=== PATIENT | male | born 1960 | race American Indian/Alaskan Native ===

== ENCOUNTER 2020-03-25 13:45 | Inpatient (IN) | payer BC ==
[2020-03-25] MEDS ORDERED: ASPIRIN 325 MG TAB PO ONE ×2 (13:54→15:02)
[2020-03-25] MEDS ORDERED: SODIUM CHLORIDE IRRI 500 ML 0 ML IR ONE (14:27)
[2020-03-25 14:34] LABS: Basophils % (Auto) 0.3 % (0.0-1.8); Eosinophils # (Auto) 0.1 K/mm3 (0.0-0.4); Eosinophils % (Auto) 1.3 % (0.0-4.3); Hematocrit 45.8 % (35.5-45.6); Lymphocytes # (Auto) 0.7 K/mm3 (1.2-5.4); Lymphocytes % (Auto) 7.9 % (13.4-35.0); Mean Corpuscular HGB Conc 35 % (32-34); Mean Corpuscular Volume 81 fl (84-94); Monocytes # (Auto) 0.5 K/mm3 (0.0-0.8); Monocytes % (Auto) 5.8 % (0.0-7.3); Platelet Count 660 K/mm3 (140-440); Red Blood Count 5.63 M/mm3 (3.65-5.03); Red Cell Distribution Width 14.3 % (13.2-15.2)
[2020-03-25 14:47] LABS: Calcium 9.7 mg/dL (8.4-10.2)
[2020-03-25] MEDS ORDERED: SODIUM CHLORIDE 0.9% 1000 ML 1,000 ML IV ONE (15:02)
[2020-03-25] MEDS ORDERED: METOPROLOL TARTRATE 5 MG/5 ML INJ IV ONE (15:08)
[2020-03-25 15:12] LABS: Chol/HDL Ratio 6.34 %
--- NOTE | 2020-03-25 15:14 | Emergency Department Report ---
ED Chest Pain HPI - General Chief Complaint: Chest Pain Stated Complaint: DIFFICULTY BREATHING Time Seen by Provider: 03/25/20 14:59 Source: patient Mode of arrival: Ambulatory Limitations: No Limitations - History of Present Illness Initial Comments: Patient is a 59-year-old hypertensive male who presents emergency department for evaluation of 1-1/2 weeks of intermittent dyspnea associated with chest tightness which at times is exertional but not pleuritic. Patient denies history of cardiac disease, denies cough or fever. Patient was scheduled to be seen by cardiology today, who sent patient to the emergency department without evaluation after hearing symptoms. - Related Data Allergies Allergy/AdvReac Type Severity Reaction Status Date / Time No Known Allergies Allergy Unverified 07/11/15 08:41 Heart Score - HEART Score History: Highly suspicious EKG: Non-specific Age: 45-65 Risk factors: 1-2 risk factors Troponin: > 3x normal limit HEART Score: 7 - Critical Actions Critical Actions: >7 pts:50-65% risk of adverse cardiac event. Early invasive measures ED Review of Systems ROS: Stated complaint: DIFFICULTY BREATHING Other details as noted in HPI Comment: All other systems reviewed and negative ED Past Medical Hx - Past Medical History Previous Medical History?: Yes Hx Hypertension: Yes Hx Renal Disease: Yes (no dialysis) - Surgical History Past Surgical History?: No - Social History Smoking Status: Never Smoker Substance Use Type: None ED Physical Exam - General Limitations: No Limitations General appearance: alert, in distress - Head Head exam: Present: atraumatic, normocephalic - Eye Eye exam: Present: normal appearance - ENT ENT exam: Present: mucous membranes moist - Neck Neck exam: Present: normal inspection - Respiratory Respiratory exam: Present: normal lung sounds bilaterally. Absent: respiratory distress - Cardiovascular Cardiovascular Exam: Present: regular rate, normal rhythm. Absent: systolic murmur, diastolic murmur, rubs, gallop - GI/Abdominal GI/Abdominal exam: Present: soft, normal bowel sounds - Rectal Rectal exam: Present: deferred - Extremities Exam Extremities exam: Present: normal inspection - Back Exam Back exam: Present: normal inspection - Neurological Exam Neurological exam: Present: alert, oriented X3 - Psychiatric Psychiatric exam: Present: normal affect, normal mood - Skin Skin exam: Present: warm, dry, intact, normal color. Absent: rash ED Course Vital Signs 03/25/20 03/25/20 03/25/20 13:52 15:05 15:12 Temperature 97.6 F Pulse Rate 99 H 100 H Respiratory 24 28 H 18 Rate Blood Pressure 186/127 O2 Sat by Pulse 99 99 100 Oximetry 03/25/20 03/25/20 15:15 15:25 Temperature Pulse Rate 100 H 89 Respiratory 36 H Rate Blood Pressure 172/110 O2 Sat by Pulse 100 Oximetry - Reevaluation(s) Reevaluation #1: 03/25/20 15:13 Patient initially treated with aspirin p.o., SL nitro, heparin bolus and drip, and Lopressor IV. Krysta, midlevel for cardiology on-call Dr. Roman, contacted, case discussed, defers to [place] [facility] given absence of STEMI. 03/25/20 15:25 Reevaluation #2: 03/25/20 15:38 Patient completely asymptomatic following 1 dose of sublingual nitroglycerin Reevaluation #3: 03/25/20 15:45 Iraida Carter contacted, case discussed, will call back after consultation with MD Reevaluation #4: 03/25/20 15:50 Iraida Carter again contacted, states discussed with Dr. Ramsey Ross, recommends nitro paste and admit to hospitalist for cardiology evaluation. HARI score - Hari Score Age > 65: (0) No Aspirin use within the Past 7 Days: (0) No 3 or more CAD Risk Factors: (0) No 2 or more Angina events in past 24 hrs: (1) Yes Known CAD with more than 50% Stenosis: (0) No Elevated Cardiac Markers: (1) Yes ST Deviation Greater than 0.5mm: (0) No HARI Score: 2 ED Medical Decision Making - Lab Data Result diagrams: 03/25/20 14:06 03/25/20 14:06 Lab Results 03/25/20 03/25/20 Range/Units 14:06 14:06 WBC 8.4 (4.5-11.0) K/mm3 RBC 5.63 H (3.65-5.03) M/mm3 Hgb 16.0 H (11.8-15.2) gm/dl Hct 45.8 H (35.5-45.6) % MCV 81 L (84-94) fl MCH 29 (28-32) pg MCHC 35 H (32-34) % RDW 14.3 (13.2-15.2) % Plt Count 660 H (140-440) K/mm3 Lymph % (Auto) 7.9 L (13.4-35.0) % Martin % (Auto) 5.8 (0.0-7.3) % Eos % (Auto) 1.3 (0.0-4.3) % Baso % (Auto) 0.3 (0.0-1.8) % Lymph # (Auto) 0.7 L (1.2-5.4) K/mm3 Martin # (Auto) 0.5 (0.0-0.8) K/mm3 Eos # (Auto) 0.1 (0.0-0.4) K/mm3 Baso # (Auto) 0.0 (0.0-0.1) K/mm3 Seg Neutrophils % 84.7 H (40.0-70.0) % Seg Neutrophils # 7.1 (1.8-7.7) K/mm3 Sodium 136 L (137-145) mmol/L Potassium 4.1 (3.6-5.0) mmol/L Chloride 102.8 (98-107) mmol/L Carbon Dioxide 25 (22-30) mmol/L Anion Gap 12 mmol/L BUN 46 H (9-20) mg/dL Creatinine 4.7 H (0.8-1.3) mg/dL Estimated GFR 16 ml/min BUN/Creatinine Ratio 10 % Glucose 92 (75-100) mg/dL Calcium 9.7 (8.4-10.2) mg/dL Troponin T 0.410 H* (0.00-0.029) ng/mL Triglycerides 107 (2-149) mg/dL Cholesterol 241 H (50-199) mg/dL LDL Cholesterol Direct 206 H (50-130) mg/dL HDL Cholesterol 38 L (40-59) mg/dL Cholesterol/HDL Ratio 6.34 % Vital Signs 03/25/20 03/25/20 03/25/20 13:52 15:05 15:12 Temperature 97.6 F Pulse Rate 99 H 100 H Respiratory 24 28 H 18 Rate Blood Pressure 186/127 O2 Sat by Pulse 99 99 100 Oximetry 03/25/20 03/25/20 15:15 15:25 Temperature Pulse Rate 100 H 89 Respiratory 36 H Rate Blood Pressure 172/110 O2 Sat by Pulse 100 Oximetry - EKG Data -: EKG Interpreted by Me (Sinus rhythm at 90, nonspecific ST-T changes, normal QRS) Critical care attestation.: If time is entered above; I have spent that time in minutes in the direct care of this critically ill patient, excluding procedure time. ED Disposition Clinical Impression: NSTEMI (non-ST elevated myocardial infarction) Disposition: OP ADMIT IP TO THIS HOSP Is pt being admited?: Yes Condition: Stable
--- NOTE | 2020-03-25 15:15 | XRay Report ---
CHEST 1 VIEW 2:33 PM INDICATION / CLINICAL INFORMATION: Chest pain/tightness. COMPARISON: None available. FINDINGS: SUPPORT DEVICES: None. HEART / MEDIASTINUM: The heart size and pulmonary vasculature are normal. The aorta is normal in is[place] daniel. LUNGS / PLEURA: No significant pulmonary or pleural abnormality. No pneumothorax. ADDITIONAL FINDINGS: No significant additional findings. IMPRESSION: No acute findings. Signer Name: Bob Sheriff MD Signed: 03/25/2020 3:10 PM Workstation Name: [id number]
[2020-03-25] MEDS ORDERED: NITROGLYCERIN 0.4 MG TAB SUBL SL ONE (15:16)
[2020-03-25] MEDS ORDERED: HEPARIN 10,000 UNITS/10 ML VIAL IV ONE (15:22)
--- NOTE | 2020-03-25 15:48 | History and Physical Report ---
History of Present Illness Chief complaint: Im having chest pain History of present illness: 59 YO Male with HTN, CKD presents to ED for evaluation. Pt states that he has experienced chest pain over the past 10 days with worsening symptoms over the past 1 day. Patient states that his pain is 5/10, intermittent, worsened with exertion, relieved with rest, substernal, crushing in nature, nonradiating. Patient knowledges decreased exercise tolerance, dyspnea on exertion, dyspnea at rest. Pt notified his medical scheduler team who instructed the patient to seek further care at [facility]. Pt transported to [facility] via private vehicle for further care and evaluation of the aformentioned symptoms. Pt seen and evaluated in ED and found to have accelerated hypertension, angina as well as STEMI. Cardiology team consulted in ED. patient admitted to telemetry and initiated on therapeutic anticoagulation due to increased risk for cardiac decompensation. Pt denies fever, chills, palpitations, NVD, Traum, productive cough, skin rash, recent ill contacts, unilateral leg swelling, calf pain, prolonged travel/immobility, individual/family history of DVT/PE/bleeding/blood clotting disorders, or known exposure to COVID-19. No prior admission for review. No medication listed at time of admission for reconciliation. Past History Past Medical History: hypertension, renal failure Past Surgical History: No surgical history, Other (Reviewed) Social history: single. denies: smoking, alcohol abuse, prescription drug abuse Family history: hypertension Medications and Allergies Allergies Allergy/AdvReac Type Severity Reaction Status Date / Time No Known Allergies Allergy Unverified 07/11/15 08:41 Active Meds: Active Medications Sodium Chloride (Nacl 0.9% 1000 Ml) 1,000 mls @ 42 mls/hr IV ONCE ONE Stop: 03/26/20 14:50 Last Admin: 03/25/20 15:25 Dose: 42 mls/hr Documented by: Review of Systems Constitutional: no weight loss, no weight gain, no fever, no chills Ears, nose, mouth and throat: no ear pain, no tinnitis, no nasal congestion Cardiovascular: chest pain, shortness of breath, dyspnea on exertion, decreased exercise tolerance, no palpitations Respiratory: no cough, no cough with sputum, no excessive sputum Gastrointestinal: no abdominal pain, no nausea, no vomiting, no diarrhea, no constipation Genitourinary Male: no hematuria, no flank pain, no discharge, no nocturia, no erectile dysfunction Rectal: no pain, no incontinence, no bleeding Musculoskeletal: no neck stiffness, no shooting leg pain Integumentary: no rash, no wounds, no boils Neurological: no head injury, no weakness, no tingling, no seizures Psychiatric: no anxiety, no memory loss, no change in sleep habits, no insomnia Endocrine: no heat intolerance, no polyphagia, no polyuria, no excessive sweating Hematologic/Lymphatic: no easy bruising, no easy bleeding Allergic/Immunologic: no urticaria, no allergic rhinitis Exam - Constitutional Vitals: Temp Pulse Resp BP Pulse Ox 97.6 F 89 36 H 172/110 100 03/25/20 13:52 03/25/20 15:25 03/25/20 15:15 03/25/20 15:25 03/25/20 15:15 General appearance: Present: mild distress - EENT Eyes: Present: PERRL ENT: hearing intact, clear oral mucosa - Neck Neck: Present: supple, normal ROM - Respiratory Respiratory effort: normal Respiratory: bilateral: CTA - Cardiovascular Heart Sounds: Present: S1 & S2. Absent: rub, click - Extremities Extremities: pulses symmetrical, No edema Peripheral Pulses: within normal limits - Abdominal General gastrointestinal: Present: soft, non-tender, non-distended, normal bowel sounds Male genitourinary: Present: normal - Integumentary Integumentary: Present: clear, warm, dry - Musculoskeletal Musculoskeletal: gait normal, strength equal bilaterally - Psychiatric Psychiatric: appropriate mood/affect, intact judgment & insight - Neurologic Neurologic: CNII-XII intact, moves all extremities HEART Score - HEART Score EKG: Non-specific Age: 45-65 Risk factors: 1-2 risk factors Troponin: Troponin T 0.410 ng/mL (0.00-0.029) H* 03/25/20 14:06 Troponin: > 3x normal limit - Critical Actions Critical Actions: >7 pts:50-65% risk of adverse cardiac event. Early invasive measures Results - Labs CBC & Chem 7: 03/25/20 14:06 03/25/20 14:06 Labs: Abnormal lab results 03/25/20 03/25/20 Range/Units 14:06 14:06 RBC 5.63 H (3.65-5.03) M/mm3 Hgb 16.0 H (11.8-15.2) gm/dl Hct 45.8 H (35.5-45.6) % MCV 81 L (84-94) fl MCHC 35 H (32-34) % Plt Count 660 H (140-440) K/mm3 Lymph % (Auto) 7.9 L (13.4-35.0) % Lymph # (Auto) 0.7 L (1.2-5.4) K/mm3 Seg Neutrophils % 84.7 H (40.0-70.0) % Sodium 136 L (137-145) mmol/L BUN 46 H (9-20) mg/dL Creatinine 4.7 H (0.8-1.3) mg/dL Troponin T 0.410 H* (0.00-0.029) ng/mL Cholesterol 241 H (50-199) mg/dL LDL Cholesterol Direct 206 H (50-130) mg/dL HDL Cholesterol 38 L (40-59) mg/dL Assessment and Plan - Patient Problems (1) NSTEMI (non-ST elevated myocardial infarction) Current Visit: Yes Status: Acute Plan to address problem: Admit to telemetry, serial cardiac enzymes, EKG, therapeutic anticoagulation, cardiology team consulted in ED, further intervention and treatment as per cardiology team. (2) Diastolic CHF Current Visit: Yes Status: Acute Qualifiers: Heart failure chronicity: acute Qualified Code(s): I50.31 - Acute diastolic (congestive) heart failure Plan to address problem: Strict I/O, monitor urine output every shift, daily weight, afterload reduction, blood pressure control, echocardiogram ordered and is pending at time of ad mission (3) Accelerated hypertension Current Visit: Yes Status: Acute Plan to address problem: Monitor blood pressure every shift, continue medical management. (4) Acute kidney injury (NICHELLE) with acute tubular necrosis (ATN) Current Visit: Yes Status: Acute Plan to address problem: BMP, strict I's/O, monitor urine output every shift, avoid nephrotoxic agents, nephrology team consulted in ED. (5) DVT prophylaxis Current Visit: Yes Status: Acute Plan to address problem: SCD to bilateral lower extremities while in bed, continue therapeutic anticoagulation.
[2020-03-25] MEDS ORDERED: NITROGLYCERIN 0.4 MG PATCH 24HR TD ONE (16:00)
[2020-03-25 16:45] LABS: Creatine Kinase MB 7.4 ng/mL (0.0-4.0)
[2020-03-25 17:12] LABS: INR 1.09 (0.87-1.13)
[2020-03-25 17:13] LABS: Partial Thromboplastin Time 31.4 Sec. (24.2-36.6)
[2020-03-25] MEDS ORDERED: NITROGLYCERIN 2% OINT 1 GM TP ONE (17:32)
[2020-03-25] MEDS ORDERED: HEPARIN 10,000 UNITS/10 ML VIAL ONE (17:32)
[2020-03-25] MEDS ORDERED: ACETAMINOPHEN 325 MG TAB PO PRN (17:44)
[2020-03-25] MEDS ORDERED: ONDANSETRON 4 MG/2 ML INJ IV PRN (17:44)
[2020-03-25] MEDS: HEPARIN/ 0.45% NACL DRIP 25,000 UNIT/500 ML BAG IV SCH (21:29)
[2020-03-25] MEDS: METOPROLOL TARTRATE 25 MG TAB PO SCH (22:03)
[2020-03-26] MEDS ORDERED: ACETAMINOPHEN 325 MG TAB PO PRN (00:32)
[2020-03-26] MEDS ORDERED: NITROGLYCERIN 0.4 MG TAB SUBL SL PRN (00:32)
[2020-03-26] MEDS: ACETAMINOPHEN 325 MG TAB PO PRN ×3 (06:33→21:19)
[2020-03-26 06:34] LABS: Basophils % (Auto) 0.5 % (0.0-1.8); Eosinophils # (Auto) 0.1 K/mm3 (0.0-0.4); Eosinophils % (Auto) 1.7 % (0.0-4.3); Hematocrit 40.7 % (35.5-45.6); Hemoglobin 14.2 gm/dl (11.8-15.2); Lymphocytes % (Auto) 11.9 % (13.4-35.0); Mean Corpuscular HGB Conc 35 % (32-34); Mean Corpuscular Volume 81 fl (84-94); Monocytes # (Auto) 0.8 K/mm3 (0.0-0.8); Monocytes % (Auto) 9.4 % (0.0-7.3); Platelet Count 665 K/mm3 (140-440); Red Blood Count 5.05 M/mm3 (3.65-5.03); Red Cell Distribution Width 14.3 % (13.2-15.2)
[2020-03-26] MEDS ORDERED: hydrALAZINE 20 MG/1 ML INJ IV ONE (06:45)
[2020-03-26 06:49] LABS: Calcium 9.1 mg/dL (8.4-10.2)
--- NOTE | 2020-03-26 08:15 | Consultation ---
History of Present Illness - Reason for Consult Consult date: 03/26/20 chronic renal failure - History of Present Illness 59 year old man with known CKD, HTN, HLD who presents with shortness of breath and chest tightness. Patient is known to myself from CKD clinic, last seen 03/07/2020. Denies any concerning symptoms today, including appetite changes, nausea, vomiting, abnormal urination, dyspnea, metallic tasting food. Creatinine has been relatively stable between 4.1-4.5 for most part. Has noted interest in PD in past but has not decided. Also referred for [place] transplant evaluation but not done. Notes that he is feeling better today as noted above. Good urination per larissa ent. Past History Past Medical History: hypertension, renal failure Past Surgical History: No surgical history, Other (Reviewed) Social history: single. denies: smoking, alcohol abuse, prescription drug abuse Family history: hypertension Medications and Allergies Allergies Allergy/AdvReac Type Severity Reaction Status Date / Time No Known Allergies Allergy Unverified 07/11/15 08:41 Home Medications Medication Instructions Recorded Confirmed Last Taken Type Methyldopa 500 mg PO ONCE 03/25/20 03/26/20 03/25/20 History Rosuvastatin Calcium 40 mg PO ONCE 03/25/20 03/26/20 Unknown History Triamcinolone 0.1% [Kenalog 0.1% 1 applic TP TID 03/25/20 03/26/20 03/26/20 10:36 History OINT] carvediloL [Coreg] 25 mg PO BID 03/25/20 03/26/20 03/26/20 10:37 History lisinopriL [Zestril TAB] 40 mg PO QDAY 03/25/20 03/26/20 03/26/20 10:36 History Active Meds: Active Medications Acetaminophen (Acetaminophen 325 Mg Tab) 650 mg PO Q6H PRN PRN Reason: Pain MILD(1-3)/Fever >100.5/NEGRO Last Admin: 03/26/20 06:33 Dose: 650 mg Documented by: Atorvastatin Calcium (Atorvastatin 40 Mg Tab) 40 mg PO QHS DERIK Last Admin: 03/26/20 00:53 Dose: 40 mg Documented by: Sodium Chloride (Nacl 0.9% 1000 Ml) 1,000 mls @ 42 mls/hr IV ONCE ONE Stop: 03/26/20 14:50 Last Admin: 03/25/20 15:25 Dose: 42 mls/hr Documented by: Heparin Sodium/Sodium Chloride (Heparin/ 0.45% Nacl-25,000 Unit/500 Ml) 25,000 unit in 500 mls @ 29 mls/hr IV TITR [facility]; Protocol Last Titration: 03/26/20 07:02 Dose: 0 units/hr, 0 mls/hr Documented by: Metoprolol Tartrate (Metoprolol Tartrate 25 Mg Tab) 12.5 mg PO BID [facility] Last Admin: 03/25/20 22:03 Dose: 12.5 mg Documented by: Nitroglycerin (Nitroglycerin 0.4 Mg Tab Subl) 0.4 mg SL Q5M PRN PRN Reason: Chest Pain Ondansetron HCl (Ondansetron 4 Mg/2 Ml Inj) 4 mg IV Q8H PRN PRN Reason: Nausea And Vomiting Sodium Chloride (Sodium Chloride 0.9% 10 Ml Flush Syringe) 10 ml IV BID [facility] Last Admin: 03/25/20 22:03 Dose: 10 ml Documented by: Sodium Chloride (Sodium Chloride 0.9% 10 Ml Flush Syringe) 10 ml IV PRN PRN PRN Reason: LINE FLUSH Sodium Chloride (Sodium Chloride 0.9% 10 Ml Flush Syringe) 10 ml IV PRN PRN PRN Reason: LINE FLUSH Review of Systems All systems: negative (as per HPI) Exam - Vital Signs Vital signs: Vital Signs Temp Pulse Resp BP Pulse Ox 97.6 F 99 H 24 186/127 99 03/25/20 13:52 03/25/20 13:52 03/25/20 13:52 03/25/20 13:52 03/25/20 13:52 - Physical Exam Narrative exam: Constitutional: no acute distress Head: NC/AT Neck: supple Lungs: clear to auscultation CV: RRR, no M/R/G Abdomen: soft, non-tender, bowel sounds present Back: nontender Extremities: no edema, pulses WNL Skin: intact Neuro: no focal deficits, alert and oriented x4 Results - Lab Results 03/26/20 06:07 03/26/20 06:07 Most recent lab results Calcium 9.1 mg/dL (8.4-10.2) 03/26/20 06:07 Assessment and Plan # CKD stage 4: creatinine is fairly stable at this time. Did review his outpatient notes and discussed his CKD prognosis and risk of NICHELLE with him today. Patient has been working hard to manage his lifestyle to maintain off dialysis, but certainly high risk to progress to ESRD at this time. - appreciate cardiology input, defer management for ACS to them. If contrast is needed for angiography, ok from renal perspective if benefits >risks. Would advise pre and post hydration (1L as tolerated) to mitigate nephrotoxic risk. Did discuss with patient that contrast is a known nephrotoxin and may worsen his renal function - Is/Os, please ensure proper urine output noted - renally dose meds - save arm precautions - no immediate indication for HD, will follow with course. Electrolytes WNL # NSTEMI, Tropinemia: appreciate cardiology input # HTN: BP outpatient had been controlled, but now high. Would increase metoprolol as able (or consider carvedilol for greater BP effect) # Secondary Hyperparathyroidism: last PTH ~100
--- NOTE | 2020-03-26 08:22 | Progress Note ---
Assessment and Plan Assessment and plan: (1) NSTEMI (non-ST elevated myocardial infarction) Current Visit: Yes Status: Acute Plan to address problem: Admit to telemetry, serial cardiac enzymes, EKG, therapeutic anticoagulation, cardiology team consulted in ED, further intervention and treatment as per cardiology team. (2) Diastolic CHF Current Visit: Yes Status: Acute Qualifiers: Heart failure chronicity: acute Qualified Code(s): I50.31 - Acute diastolic (congestive) heart failure Plan to address problem: Strict I/O, monitor urine output every shift, daily weight, afterload reduction, blood pressure control, echocardiogram ordered and is pending at time of admission (3) Accelerated hypertension Current Visit: Yes Status: Acute Plan to address problem: Monitor blood pressure every shift, continue medical management. (4) Acute kidney injury (NICHELLE) with acute tubular necrosis (ATN) Current Visit: Yes Status: Acute Plan to address problem: BMP, strict I's/O, monitor urine output every shift, avoid nephrotoxic agents, nephrology team consulted in ED. (5) DVT prophylaxis Current Visit: Yes Status: Acute Plan to address problem: SCD to bilateral lower extremities while in bed, continue therapeutic anticoagulation. 03/26/2020; patient has non-STEMI and currently on heparin drip, cardiology cons ulted and will follow the recommendations. Hypertensive emergency start the patient on Procardia and ARN hydralazine, will monitor and adjust medication as needed. NICHELLE; nephrology consulted and will follow the recommendations. History Interval history: Patient was seen and evaluated this morning Patient said chest pain resolved No shortness of breath Hospitalist Physical - Physical exam Narrative exam: Not in cardiopulmonary distress. The patient appeared well nourished and normally developed. Vital signs as documented. Head exam is unremarkable. No scleral icterus . Neck is without jugular venous distension, thyromegaly, or carotid bruits. Lungs are clear to auscultation. Cardiac exam reveals regular rate and Rhythm. Abdominal exam reveals normal bowel sounds, nontender, no organomegaly. Extremities are nonedematous and both femoral and pedal pulses are normal. [employer] REPRESENTATIVE: Alert and oriented 3. No focal weakness. - Constitutional Vitals: Temp Pulse Resp BP Pulse Ox 97.6 F 82 17 176/123 98 03/25/20 13:52 03/26/20 07:00 03/25/20 20:30 03/26/20 06:33 03/26/20 02:54 General appearance: Present: mild distress HEART Score - HEART Score EKG: Non-specific Age: 45-65 Risk factors: 1-2 risk factors Troponin: Troponin T 0.752 ng/mL (0.00-0.029) H* D 03/26/20 01:39 Troponin: > 3x normal limit - Critical Actions Critical Actions: >7 pts:50-65% risk of adverse cardiac event. Early invasive measures Results - Labs CBC & Chem 7: 03/26/20 06:07 03/26/20 06:07 Labs: Laboratory Last Values WBC 8.6 K/mm3 (4.5-11.0) 03/26/20 06:07 RBC 5.05 M/mm3 (3.65-5.03) H 03/26/20 06:07 Hgb 14.2 gm/dl (11.8-15.2) 03/26/20 06:07 Hct 40.7 % (35.5-45.6) 03/26/20 06:07 MCV 81 fl (84-94) L 03/26/20 06:07 MCH 28 pg (28-32) 03/26/20 06:07 MCHC 35 % (32-34) H 03/26/20 06:07 RDW 14.3 % (13.2-15.2) 03/26/20 06:07 Plt Count 665 K/mm3 (140-440) H 03/26/20 06:07 Lymph % (Auto) 11.9 % (13.4-35.0) L 03/26/20 06:07 [place] % (Auto) 9.4 % (0.0-7.3) H 03/26/20 06:07 Eos % (Auto) 1.7 % (0.0-4.3) 03/26/20 06:07 Baso % (Auto) 0.5 % (0.0-1.8) 03/26/20 06:07 Lymph # (Auto) 1.0 K/mm3 (1.2-5.4) L 03/26/20 06:07 [place] # (Auto) 0.8 K/mm3 (0.0-0.8) 03/26/20 06:07 Eos # (Auto) 0.1 K/mm3 (0.0-0.4) 03/26/20 06:07 Baso # (Auto) 0.0 K/mm3 (0.0-0.1) 03/26/20 06:07 Seg Neutrophils % 76.5 % (40.0-70.0) H 03/26/20 06:07 Seg Neutrophils # 6.6 K/mm3 (1.8-7.7) 03/26/20 06:07 PT 13.9 Sec. (12.2-14.9) 03/25/20 15:24 INR 1.09 (0.87-1.13) 03/25/20 15:24 APTT 31.4 Sec. (24.2-36.6) 03/25/20 15:24 Heparin Anti-Xa Level 0.91 U.I./ml (0.3-0.7) H 03/26/20 06:07 Sodium 139 mmol/L (137-145) 03/26/20 06:07 Potassium 4.2 mmol/L (3.6-5.0) 03/26/20 06:07 Chloride 105.0 mmol/L (98-107) 03/26/20 06:07 Carbon Dioxide 24 mmol/L (22-30) 03/26/20 06:07 Anion Gap 14 mmol/L 03/26/20 06:07 BUN 48 mg/dL (9-20) H 03/26/20 06:07 Creatinine 4.8 mg/dL (0.8-1.3) H 03/26/20 06:07 Estimated GFR 15 ml/min 03/26/20 06:07 BUN/Creatinine Ratio 10 % 03/26/20 06:07 Glucose 85 mg/dL (75-100) 03/26/20 06:07 Calcium 9.1 mg/dL (8.4-10.2) 03/26/20 06:07 Total Creatine Kinase 267 units/L (55-170) H 03/25/20 15:24 CK-MB (CK-2) 7.4 ng/mL (0.0-4.0) H 03/25/20 15:24 CK-MB (CK-2) Rel Index 2.7 (0-4) 03/25/20 15:24 Troponin T 0.752 ng/mL (0.00-0.029) H* D 03/26/20 01:39 NT-Pro-B Natriuret Pep 1711 pg/mL (0-900) H 03/25/20 15:24 Triglycerides 107 mg/dL (2-149) 03/25/20 14:06 Cholesterol 241 mg/dL (50-199) H 03/25/20 14:06 LDL Cholesterol Direct 206 mg/dL (50-130) H 03/25/20 14:06 HDL Cholesterol 38 mg/dL (40-59) L 03/25/20 14:06 Cholesterol/HDL Ratio 6.34 % 03/25/20 14:06 Blood Type B POSITIVE 03/25/20 15:24 Antibody Screen Negative 03/25/20 15:24 Melendez/IV: Voiding Method Toilet IV Catheter Type [Right INT / Saline Lock Antecubital] Active Medications - Current Medications Current Medications: Generic Name Dose Route Start Last Admin Trade Name Freq PRN Reason Stop Dose Admin Acetaminophen 650 mg 03/26/20 01:00 03/26/20 06:33 Acetaminophen 325 Mg Tab PO 650 mg Q6H PRN Administration Pain MILD(1-3)/Fever >100.5/NEGRO Atorvastatin Calcium 40 mg 03/26/20 00:32 03/26/20 00:53 Atorvastatin 40 Mg Tab PO 40 mg QHS DERIK Administration Hydralazine HCl 10 mg 03/26/20 10:00 Hydralazine 20 Mg/1 Ml Inj IV Q4HR DERIK Sodium Chloride 1,000 mls @ 42 mls/hr 03/25/20 15:02 03/25/20 15:25 Nacl 0.9% 1000 Ml IV 03/26/20 14:50 42 mls/hr ONCE ONE Administration Heparin Sodium/Sodium Chloride 25,000 unit in 500 mls @ 29 mls/hr 03/25/20 19:00 03/26/20 07:02 Heparin/ 0.45% Nacl-25,000 Unit/500 Ml IV 0 units/hr TITR DERIK 0 mls/hr Titration Protocol 1,450 UNITS/HR Metoprolol Tartrate 12.5 mg 03/25/20 22:00 03/25/20 22:03 Metoprolol Tartrate 25 Mg Tab PO 12.5 mg BID DERIK Administration Nifedipine 90 mg 03/26/20 08:19 Nifedipine Xl 90 Mg Tab PO Q12HR DERIK Nitroglycerin 0.4 mg 12/12/20 00:32 Nitroglycerin 0.4 Mg Tab Subl SL Q5M PRN Chest Pain Ondansetron HCl 4 mg 03/25/20 17:44 Ondansetron 4 Mg/2 Ml Inj IV Q8H PRN Nausea And Vomiting Sodium Chloride 10 ml 03/25/20 22:00 03/25/20 22:03 Sodium Chloride 0.9% 10 Ml Flush Syringe IV 10 ml BID DERIK Administration Sodium Chloride 10 ml 03/25/20 17:44 Sodium Chloride 0.9% 10 Ml Flush Syringe IV PRN PRN LINE FLUSH Sodium Chloride 10 ml 03/26/20 00:32 Sodium Chloride 0.9% 10 Ml Flush Syringe IV PRN PRN LINE FLUSH
--- NOTE | 2020-03-26 09:02 | Consultation ---
History of Present Illness Consult date: 03/26/20 Consult reason: chest pain History of present illness: 59 year old male presenting with shortness of breath and chest tightness. Patient denies prior history of heart disease but surely has several uncontrolled risk factors including uncontrolled hypertension, hyperlipidemia for which he was not taking his statin therapy and renal failuire. He denies prior history of type II DM. There is a strong family history of heart disease. Troponin trend is consistent with ACS. Past History Past Medical History: hypertension, renal failure Past Surgical History: No surgical history, Other (Reviewed) Social history: single. denies: smoking, alcohol abuse, prescription drug abuse Family history: hypertension Medications and Allergies Allergies Allergy/AdvReac Type Severity Reaction Status Date / Time No Known Allergies Allergy Unverified 07/11/15 08:41 Home Medications Medication Instructions Recorded Confirmed Last Taken Type Methyldopa 03/25/20 Unknown History Rosuvastatin Calcium 40 mg PO 03/25/20 Unknown History Tamsulosin 03/25/20 Unknown History Triamcinolone 0.1% [Kenalog 0.1% 1 applic TP TID 03/25/20 03/25/20 Unknown History OINT] carvediloL [Coreg] 03/25/20 Unknown History lisinopriL [Zestril TAB] 40 mg PO QDAY 03/25/20 03/25/20 Unknown History Active Meds: Active Medications Acetaminophen (Acetaminophen 325 Mg Tab) 650 mg PO Q6H PRN PRN Reason: Pain MILD(1-3)/Fever >100.5/NEGRO Last Admin: 03/26/20 06:33 Dose: 650 mg Documented by: Atorvastatin Calcium (Atorvastatin 40 Mg Tab) 40 mg PO QHS DERIK Last Admin: 03/26/20 00:53 Dose: 40 mg Documented by: Hydralazine HCl (Hydralazine 20 Mg/1 Ml Inj) 10 mg IV Q4HR DERIK Sodium Chloride (Nacl 0.9% 1000 Ml) 1,000 mls @ 42 mls/hr IV ONCE ONE Stop: 03/26/20 14:50 Last Admin: 03/25/20 15:25 Dose: 42 mls/hr Documented by: Heparin Sodium/Sodium Chloride (Heparin/ 0.45% Nacl-25,000 Unit/500 Ml) 25,000 unit in 500 mls @ 29 mls/hr IV TITR DERIK; Protocol Last Titration: 03/26/20 07:02 Dose: 0 units/hr, 0 mls/hr Documented by: Metoprolol Tartrate (Metoprolol Tartrate 25 Mg Tab) 12.5 mg PO BID [facility] Last Admin: 03/25/20 22:03 Dose: 12.5 mg Documented by: Nifedipine (Nifedipine Xl 90 Mg Tab) 90 mg PO Q12HR [facility] Nitroglycerin (Nitroglycerin 0.4 Mg Tab Subl) 0.4 mg SL Q5M PRN PRN Reason: Chest Pain Ondansetron HCl (Ondansetron 4 Mg/2 Ml Inj) 4 mg IV Q8H PRN PRN Reason: Nausea And Vomiting Sodium Chloride (Sodium Chloride 0.9% 10 Ml Flush Syringe) 10 ml IV BID [facility] Last Admin: 03/25/20 22:03 Dose: 10 ml Documented by: Sodium Chloride (Sodium Chloride 0.9% 10 Ml Flush Syringe) 10 ml IV PRN PRN PRN Reason: LINE FLUSH Review of Systems All systems: negative Physical Examination Vital Signs Temp Pulse Resp BP Pulse Ox 97.6 F 99 H 24 186/127 99 03/25/20 13:52 03/25/20 13:52 03/25/20 13:52 03/25/20 13:52 03/25/20 13:52 General appearance: no acute distress Neck: Positive: neck supple Cardiac: Positive: Reg Rate and Rhythm Lungs: Positive: Normal Exam Neuro: Positive: Grossly Intact Abdomen: Positive: Soft Extremities: Absent: edema Results 03/26/20 06:07 03/26/20 06:07 Cardiac Enzymes 03/25/20 Range/Units 15:24 CK-MB (CK-2) 7.4 H (0.0-4.0) ng/mL Coagulation 03/25/20 Range/Units 15:24 PT 13.9 (12.2-14.9) Sec. INR 1.09 (0.87-1.13) APTT 31.4 (24.2-36.6) Sec. Lipids 03/25/20 Range/Units 14:06 Triglycerides 107 (2-149) mg/dL Cholesterol 241 H (50-199) mg/dL HDL Cholesterol 38 L (40-59) mg/dL Cholesterol/HDL Ratio 6.34 % CBC 03/25/20 03/26/20 Range/Units 14:06 06:07 WBC 8.4 8.6 (4.5-11.0) K/mm3 RBC 5.63 H 5.05 H (3.65-5.03) M/mm3 Hgb 16.0 H 14.2 (11.8-15.2) gm/dl Hct 45.8 H 40.7 (35.5-45.6) % Plt Count 660 H 665 H (140-440) K/mm3 Lymph # (Auto) 0.7 L 1.0 L (1.2-5.4) K/mm3 [place] # (Auto) 0.5 0.8 (0.0-0.8) K/mm3 Eos # (Auto) 0.1 0.1 (0.0-0.4) K/mm3 Baso # (Auto) 0.0 0.0 (0.0-0.1) K/mm3 Comprehensive Metabolic Panel 03/25/20 03/26/20 Range/Units 14:06 06:07 Sodium 136 L 139 (137-145) mmol/L Potassium 4.1 4.2 (3.6-5.0) mmol/L Chloride 102.8 105.0 (98-107) mmol/L Carbon Dioxide 25 24 (22-30) mmol/L BUN 46 H 48 H (9-20) mg/dL Creatinine 4.7 H 4.8 H (0.8-1.3) mg/dL Glucose 92 85 (75-100) mg/dL Calcium 9.7 9.1 (8.4-10.2) mg/dL - EKG Interpretation EKG: sinus rhythm EKG interpretations - Telemetry EKG Rhythm: Sinus Rhythm Assessment and Plan NSTEMI Essential primary hypertension Labile blood pressure - uncontrolled Hyperlipidemia (LDL 206) Not taking statin as outpatient Chronic renal failure, stage IV Echocardiogram showing normal LVEF with mild LVH Recommendations: GDMT for NSTEMI including intravenous anticoagulation for 48 hours Ideally patient needs a coronary angiogram but would like renal input and guidance with respect to contrast nephrotoxicity
[2020-03-26] MEDS: ASPIRIN EC 81 MG TAB PO SCH (09:24)
[2020-03-26] MEDS: hydrALAZINE 20 MG/1 ML INJ IV SCH ×4 (09:25→21:09)
[2020-03-26] MEDS: METOPROLOL TARTRATE 25 MG TAB PO SCH ×2 (09:25→21:10)
[2020-03-26] MEDS: NIFEdipine XL 90 MG TAB PO SCH ×2 (09:25→21:10)
[2020-03-26] MEDS: HEPARIN/ 0.45% NACL DRIP 25,000 UNIT/500 ML BAG IV SCH ×2 (15:21→16:51)
[2020-03-27] MEDS: hydrALAZINE 20 MG/1 ML INJ IV SCH ×4 (02:19→14:28)
[2020-03-27] MEDS: ACETAMINOPHEN 325 MG TAB PO PRN (06:25)
[2020-03-27 07:02] LABS: Calcium 9.5 mg/dL (8.4-10.2)
[2020-03-27] MEDS: NIFEdipine XL 90 MG TAB PO SCH (09:10)
[2020-03-27] MEDS: METOPROLOL TARTRATE 25 MG TAB PO SCH (09:11)
[2020-03-27] MEDS: ASPIRIN EC 81 MG TAB PO SCH (09:11)
--- NOTE | 2020-03-27 09:56 | Progress Note ---
Assessment and Plan NSTEMI Extensive discussion with patient Patient decided to pursue conservative medical therapy due to underlying renal failure Essential primary hypertension Labile blood pressure - uncontrolled Hyperlipidemia (LDL 206) Not taking statin as outpatient Chronic renal failure, stage IV Echocardiogram showing normal LVEF with mild LVH Recommendations: Patient decided to pursue conservative medical therapy due to underlying renal failure Start plavix 75 mg po daily and increase metoprolol to 50 mg po bid Continue IV heparin until 7 pm today then discontinue Outpatient cardiac follow-up Subjective Date of service: 03/27/20 Principal diagnosis: NSTEMI Interval history: Patient denies chest pain or shortness of breath Objective Vital Signs Temp Pulse Pulse Pulse Resp BP Pulse Ox 03/27/20 09:11 92 H 172/119 03/27/20 08:40 98 03/27/20 08:36 98.1 F 106 H 18 171/106 98 03/27/20 03:11 99.6 F 97 H 16 178/119 94 03/26/20 22:54 98.4 F 99 H 16 153/108 97 03/26/20 21:10 101 H 158/109 03/26/20 19:28 99.8 F H 109 H 16 158/109 96 03/26/20 19:25 119 H 03/26/20 17:44 78 162/109 03/26/20 16:11 98.9 F 100 H 20 162/109 100 03/26/20 15:48 98 H 175/110 98 03/26/20 14:00 89 169/105 03/26/20 12:00 98 H 85 85 19 98 03/26/20 11:31 99.2 F 93 H 18 167/103 97 03/26/20 10:00 82 - Physical Examination General: Appears Well Neck: Positive: neck supple Cardiac: Positive: Reg Rate and Rhythm Lungs: Positive: Normal Exam Neuro: Positive: Grossly Intact Abdomen: Positive: Soft Extremities: Absent: edema - Labs and Meds Comprehensive Metabolic Panel 03/27/20 Range/Units 05:28 Sodium 139 (137-145) mmol/L Potassium 4.0 (3.6-5.0) mmol/L Chloride 105.3 (98-107) mmol/L Carbon Dioxide 19 L (22-30) mmol/L BUN 45 H (9-20) mg/dL Creatinine 4.4 H (0.8-1.3) mg/dL Glucose 98 (75-100) mg/dL Calcium 9.5 (8.4-10.2) mg/dL
[2020-03-27] MEDS ORDERED: CLOPIDOGREL 75 MG TAB PO SCH (10:00)
[2020-03-27] MEDS: HEPARIN/ 0.45% NACL DRIP 25,000 UNIT/500 ML BAG IV SCH (13:06)
--- NOTE | 2020-03-27 14:15 | Discharge Summary ---
Providers - Providers Date of Admission: 03/25/20 17:44 Date of discharge: 03/27/20 Attending physician: BRENNAN DE JESUS 03/25/20 17:39 Consult to Physician [CONS] Routine Comment: Consulting Provider: JOANNA SUAREZ Physician Instructions: Reason For Exam: NSTEMI 03/25/20 17:42 Consult to Physician [CONS] Routine Comment: Consulting Provider: PAYAM MCCABE Physician Instructions: Reason For Exam: ckd 03/26/20 00:32 Consult to Cardiac Rehabilitation [CONS] Routine Reason For Exam: Phase I Primary care physician: [employer] Hospitalization Condition: Stable Hospital course: 59 YO Male with HTN, CKD presents to ED for evaluation. Pt states that he has experienced chest pain over the past 10 days with worsening symptoms over the past 1 day. Patient states that his pain is 5/10, intermittent, worsened with exertion, relieved with rest, substernal, crushing in nature, nonradiating. Patient knowledges decreased exercise tolerance, dyspnea on exertion, dyspnea at rest. 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 Pt transported to [facility] via private vehicle for further care and evaluation of the aformentioned symptoms. Pt seen and evaluated in ED and found to have accelerated hypertension, angina as well as STEMI. Cardiology team consulted in ED. patient admitted to telemetry and initiated on therapeutic anticoagulation due to increased risk for cardiac decompensation. Pt denies fever, chills, palpitations, NVD, [place]um, productive cough, skin rash, recent ill contacts, unilateral leg swelling, calf pain, prolonged travel/immobility, individual/family history of DVT/PE/bleeding/blood clotting disorders, or known exposure to COVID-19. No prior admission for review. No medication listed at time of admission for reconciliation. Patient did well after admission Patient was on IV heparin which was to be continued till 7 PM today Patient symptomatically better No chest pain Patient to follow-up with cardiology (1) NSTEMI (non-ST elevated myocardial infarction) Current Visit: Yes Status: Acute Plan to address problem: Extensive discussion with patient Patient decided to pursue conservative medical therapy due to underlying renal failure Patient to follow-up with cardiology (2) Diastolic CHF Current Visit: Yes Status: Acute Qualifiers: Heart failure chronicity: acute Qualified Code(s): I50.31 - Acute diastolic (congestive) heart failure Plan to address problem: Normal EF Patient initiated on metoprolol and Plavix Echocardiogram showing normal LVEF with mild LVH (3) Accelerated hypertension Current Visit: Yes Status: Acute Plan to address problem: Blood pressure well controlled (4) Acute kidney injury (NICHELLE) with acute tubular necrosis (ATN) on CKD Current Visit: Yes Status: Acute Plan to address problem: Patient is a candidate for peritoneal dialysis and transplant Patient to follow-up with nephrology Chronic renal failure stage IV 5)Hyperlipidemia (LDL 206) Not taking statin as outpatient Will discharge on statins Disposition: - TO HOME OR SELFCARE Time spent for discharge: 32 minutes - Discharge Diagnoses (1) Accelerated hypertension Status: Acute (2) Acute kidney injury (NICHELLE) with acute tubular necrosis (ATN) Status: Acute (3) Diastolic CHF Status: Acute Qualifiers: Heart failure chronicity: acute Qualified Code(s): I50.31 - Acute diastolic (congestive) heart failure (4) NSTEMI (non-ST elevated myocardial infarction) Status: Acute Core Measure Documentation - Palliative Care Palliative Care/ Comfort Measures: Not Applicable - Core Measures Any of the following diagnoses?: none Exam - Constitutional Vitals: Temp Pulse Resp BP Pulse Ox 98.1 F 97 H 18 158/118 97 03/27/20 11:18 03/27/20 11:18 03/27/20 11:18 03/27/20 11:18 03/27/20 11:18 General appearance: Present: no acute distress, well-nourished - EENT Eyes: Present: PERRL ENT: hearing intact, clear oral mucosa - Neck Neck: Present: supple, normal ROM - Respiratory Respiratory effort: normal Respiratory: bilateral: CTA - Cardiovascular Heart rate: 78 Rhythm: regular Heart Sounds: Present: S1 & S2. Absent: rub, click - Extremities Extremities: no ischemia, pulses symmetrical, No edema Peripheral Pulses: within normal limits - Abdominal General gastrointestinal: Present: soft, non-tender, non-distended, normal bowel sounds Male genitourinary: Present: normal - Integumentary Integumentary: Present: clear, warm, dry - Musculoskeletal Musculoskeletal: gait normal, strength equal bilaterally - Psychiatric Psychiatric: appropriate mood/affect, intact judgment & insight - Neurologic Neurologic: CNII-XII intact, moves all extremities Plan Activity: no restrictions Diet: renal Follow up with: PRIMARY CAREMD [Primary Care Provider] - 7 Days NOEMI CHAWLA MD [Staff Physician] - 7 Days PAYAM MCCABE MD [Staff Physician] - 7 Days
[2020-03-27 14:29] VITALS: BP 165/112
--- NOTE | 2020-03-27 15:16 | Progress Note ---
Assessment and Plan # CKD stage 4: creatinine is stable at this time. Did review his outpatient notes and discussed his CKD prognosis and risk of NICHELLE with him today. Patient has been working hard to manage his lifestyle to maintain off dialysis, but certainly high risk to progress to ESRD at this time. - appreciate cardiology input, defer management for ACS to them. If contrast is needed for angiography, ok from renal perspective if benefits >risks. Would advise pre and post hydration (1L as tolerated) to mitigate nephrotoxic risk. D id discuss with patient that contrast is a known nephrotoxin and may worsen his renal function - will continue to follow outpatient as per cardiology, due for follow up in CKD clinic next month - Is/Os, please ensure proper urine output noted - renally dose meds - save arm precautions - no immediate indication for HD, will follow with course. Electrolytes WNL # NSTEMI, Tropinemia: appreciate cardiology input # HTN: BP outpatient had been controlled, but now high. Would increase metoprolol as able (or consider carvedilol for greater BP effect) # Secondary Hyperparathyroidism: last PTH ~100 Subjective Date of service: 03/27/20 Principal diagnosis: NSTEMI Interval history: No acute issues today, patient states that he is ready to go home and will follow up with cardiology outpatient Objective - Exam Narrative Exam: Constitutional: no acute distress Head: NC/AT Neck: supple Lungs: clear to auscultation CV: RRR, no M/R/G Abdomen: soft, non-tender, bowel sounds present Back: nontender Extremities: no edema, pulses WNL Skin: intact Neuro: no focal deficits, alert and oriented x4 - Vital Signs Vital signs: Vital Signs - 12hr 03/27/20 03/27/20 03/27/20 07:00 08:36 08:40 Temperature 98.1 F Pulse Rate 100 H 106 H Pulse Rate [ Left Radial] Pulse Rate [ Right Radial] Respiratory 18 Rate Blood Pressure 171/106 O2 Sat by Pulse 98 98 Oximetry 03/27/20 03/27/20 03/27/20 09:11 10:00 11:18 Temperature 98.1 F Pulse Rate 92 H 97 H Pulse Rate [ 97 H Left Radial] Pulse Rate [ 97 H Right Radial] Respiratory 18 18 Rate Blood Pressure 172/119 158/118 O2 Sat by Pulse 97 Oximetry 03/27/20 14:28 Temperature Pulse Rate 90 Pulse Rate [ Left Radial] Pulse Rate [ Right Radial] Respiratory Rate Blood Pressure 165/112 O2 Sat by Pulse Oximetry - Lab 03/26/20 06:07 03/27/20 05:28 Most recent lab results Calcium 9.5 mg/dL (8.4-10.2) 03/27/20 05:28 Medications & Allergies - Medications Allergies/Adverse Reactions: Allergies No Known Allergies Allergy (Unverified 07/11/15 08:41) Home Medications: Home Medications Medication Instructions Recorded Confirmed Last Taken Type Methyldopa 500 mg PO ONCE 03/25/20 03/26/20 03/25/20 History Rosuvastatin Calcium 40 mg PO ONCE 03/25/20 03/26/20 Unknown History Triamcinolone 0.1% [Kenalog 0.1% 1 applic TP TID 03/25/20 03/26/20 03/26/20 10:36 History OINT] carvediloL [Coreg] 25 mg PO BID 03/25/20 03/26/20 03/26/20 10:37 History lisinopriL [Zestril TAB] 40 mg PO QDAY 03/25/20 03/26/20 03/26/20 10:36 History Aspirin EC [Halfprin EC] 81 mg PO QDAY tablet 03/27/20 Unknown Rx Clopidogrel [Plavix] 75 mg PO QDAY #30 tablet 03/27/20 Unknown Rx Metoprolol [Lopressor TAB] 50 mg PO BID #60 tablet 03/27/20 Unknown Rx NIFEdipine XL [Procardia Xl] 90 mg PO Q12HR #30 tablet 03/27/20 Unknown Rx Active Medications: Generic Name Dose Route Start Last Admin Trade Name Breezy PRN Reason Stop Dose Admin Acetaminophen 650 mg 03/26/20 01:00 03/27/20 06:25 Acetaminophen 325 Mg Tab PO 650 mg Q6H PRN Administration Pain MILD(1-3)/Fever >100.5/NEGRO Aspirin 81 mg 03/26/20 10:00 03/27/20 09:11 Aspirin Ec 81 Mg Tab PO 81 mg QDAY DERIK Administration Atorvastatin Calcium 40 mg 03/26/20 00:32 03/26/20 21:09 Atorvastatin 40 Mg Tab PO 40 mg QHS DERIK Administration Clopidogrel Bisulfate 75 mg 03/27/20 10:00 03/27/20 10:22 Clopidogrel 75 Mg Tab PO 75 mg QDAY DERIK Administration Hydralazine HCl 10 mg 03/26/20 10:00 03/27/20 14:28 Hydralazine 20 Mg/1 Ml Inj IV 10 mg Q4HR DERIK Administration Heparin Sodium/Sodium Chloride 25,000 unit in 500 mls @ 29 mls/hr 03/25/20 19:00 03/27/20 13:06 Heparin/ 0.45% Nacl-25,000 Unit/500 Ml IV 1,250 units/hr TITR DERIK 25 mls/hr Administration Protocol 1,450 UNITS/HR Metoprolol Tartrate 50 mg 03/27/20 22:00 Metoprolol Tartrate 25 Mg Tab PO BID DERIK Nifedipine 90 mg 03/26/20 10:00 03/27/20 09:10 Nifedipine Xl 90 Mg Tab PO 90 mg Q12HR DERIK Administration Nitroglycerin 0.4 mg 03/26/20 00:32 Nitroglycerin 0.4 Mg Tab Subl SL Q5M PRN Chest Pain Ondansetron HCl 4 mg 03/25/20 17:44 Ondansetron 4 Mg/2 Ml Inj IV Q8H PRN Nausea And Vomiting Sodium Chloride 10 ml 03/25/20 22:00 03/27/20 09:12 Sodium Chloride 0.9% 10 Ml Flush Syringe IV 10 ml BID DERIK Administration Sodium Chloride 10 ml 03/26/20 00:32 Sodium Chloride 0.9% 10 Ml Flush Syringe IV PRN PRN LINE FLUSH
[2020-03-27] MEDS ORDERED: METOPROLOL TARTRATE 25 MG TAB PO SCH (22:00)
== END 2020-03-27 17:09 | disposition home or self-care (01) | DRG 280 ==
LOC: ED 13:45 → 4A 17:44
PROVIDERS: ADMIT Internal Medicine; ATTEND Internal Medicine
DX: I21.4 Non-ST elevation (NSTEMI) myocardial infarction (principal); N17.0 Acute kidney failure with tubular necrosis; I50.31 Acute diastolic (congestive) heart failure; N18.4 Chronic kidney disease, stage 4 (severe); I13.0 Hypertensive heart and chronic kidney disease with heart failure and stage 1 through stage 4 chronic kidney disease, or unspecified chronic kidney disease; N25.81 Secondary hyperparathyroidism of renal origin; I16.1 Hypertensive emergency; E78.5 Hyperlipidemia, unspecified; Z82.49 Family history of ischemic heart disease and other diseases of the circulatory system
CPT/HCPCS: 36415; 71045; 80048; 80061; 82550; 82553; 83880; 84484; 85025; 85520; 85610; 85730; 86850; 86900; 86901; 90471; 93005; 93306; 94760; 96365; 96375; 96376; G0378; A9270-GY; J0360; J1644; J7030